=== PATIENT | female | born 1965 | race African-American/Black ===

== ENCOUNTER 2017-11-11 18:04 | Emergency (ER) | payer MEDICAID ==
[~2017-11-11] VITALS: Ht 162.6 cm; Wt 80.0 kg
[~2017-11-11 18:04] MED LIST: BENA20TA3 PO; FERR-63 PO; FURO-151 PO; GABA-529 PO; HYDR25TA PO; LORA10TA7 PO; OMEP40CA34 PO; POTA20TA12 PO; SIMV10TA6 PO; TRAM50TA3 PO
[2017-11-11 21:52] LABS: CLARITY URINE CLOUDY (CLEAR); COLOR URINE YELLOW (YELLOW); KETONES URINE TRACE (NEGATIVE); LEUKOCYTE ESTERASE URINE 3+ (NEGATIVE); NITRITE URINE NEGATIVE (NEGATIVE); OCCULT BLOOD URINE NEGATIVE (NEGATIVE); PROTEIN URINE NEGATIVE (NEGATIVE)
[2017-11-11 22:11] LABS: BASOPHILS % 1.3 % (0.0-2.0); EOSINOPHILS % 1.6 % (0.0-5.0); HEMATOCRIT. 34.5 % (36.0-48.0); LYMPHOCYTES % 17.9 % (20.0-50.0); MEAN CORPUSCULAR HEMOGLOBIN 23.6 pg (28.0-32.0); MEAN CORPUSCULAR VOLUME 73.6 fL (81.0-99.0); MEAN PLATELET VOLUME 7.4 fl (7.4-10.4); MONOCYTES % 11.2 % (2.0-8.0); PLATELET 379 x1000/uL (130-400); RED BLOOD CELL COUNT 4.68 mill/uL (4.2-5.4); RED CELL DISTRIBUTION WIDTH 13.6 % (11.6-14.6)
[2017-11-11 22:15] LABS: CHLORIDE 98 mEq/L (98-107)
[2017-11-11 22:19] LABS: CARBON DIOXIDE 31 mEq/L (21-32)
[2017-11-11] MEDS ORDERED: POTASSIUM CHLORIDE 20MEQ TABLET SR PO SCH (23:00)
[2017-11-11] MEDS ORDERED: KETOROLAC 60MG/2ML VIAL IM ONE (23:15)
[2017-11-11 23:27] VITALS: BP 174/101
== END 2017-11-11 23:41 | disposition home or self-care (01) ==
LOC: ER 19:47
DX: M54.5 Low back pain (principal); N39.0 Urinary tract infection, site not specified; I10 Essential (primary) hypertension; M25.511 Pain in right shoulder; Z90.710 Acquired absence of both cervix and uterus
CPT/HCPCS: 36415; 73030; 80053; 81001; 85025; 96372; 99285; J1885; Z7610